=== PATIENT | male | born 1995 | race Caucasian/White ===

== ENCOUNTER 2023-03-10 21:37 | Inpatient (IN) ==
[2023-03-10 22:26] LABS: Basophils # (auto) 0.05 K/uL (0-0.2); Basophils % (auto) 0.4 %; Eosinophils # (auto) 0.09 K/uL (0-0.50); Eosinophils % (auto) 0.7 %; Hematocrit (blood only) 41.3 % (42.0-52.0); Hemoglobin 14.3 g/dl (14.0-18.0); Immature Granulocytes # (auto) 0.06 K/uL (0.01-0.20); Immature Granulocytes % (auto) 0.5 %; Lymphocytes # (auto) 1.43 K/uL (1.2-3.4); Lymphocytes % (auto) 10.8 %; Mean Corpuscular Hemoglobin 31.2 pg (25.0-34.0); Mean Corpuscular Hgb Conc 34.6 g/dL (32.0-36.0); Mean Corpuscular Volume 90.2 fL (80.0-100.0); Mean Platelet Volume 12.3 fL (9.4-12.4); Monocytes # (auto) 1.69 K/uL (0.11-0.59); Monocytes % (auto) 12.8 %; Neutrophils # (auto) 9.86 K/uL (1.40-6.50); Neutrophils % (auto) 74.8 %; Platelet Count 156 K/uL (130-400); RDW Coefficient of Variation 13.2 % (11.5-14.5); Red Blood Count 4.58 M/uL (4.70-6.10); White Blood Count 13.18 K/ul (4.8-10.8)
[2023-03-10 22:41] LABS: Albumin Globulin Ratio 1.4 (0.9-2); Albumin Level 4.4 gm/dl (3.4-5.0); BUN Creatinine Ratio 10.8 (10-20); Bilirubin,Total 0.9 mg/dl (0.2-1.0); Calcium 9.5 mg/dl (8.6-10.3); Creatinine Clr Calc Pharmacy 145.7 ml/min; Est GFR (African American) 115.4 ml/min; Est GFR (Non-African American) 99.6 ml/min; Globulin 3.2 gm/dl (2.5-4.0); Potassium 3.7 mmol/L (3.5-5.1); Total Protein 7.6 gm/dl (6.0-8.3)
[2023-03-10] MEDS ORDERED: MoRPHine SULFATE 4 MG/ML 1 ML CARP\\VIAL IV PRN (23:13)
[2023-03-10] MEDS ORDERED: ONDANSETRON INJ 2 MG/ML 2 ML VIAL IV PRN (23:13)
[2023-03-10] MEDS ORDERED: ACETAMINOPHEN 325 MG TAB PO PRN (23:13)
[2023-03-10] MEDS ORDERED: PIPERACILLIN/TAZOBACTAM 4.5 GM (over 30 mins) IV ONE (23:30)
[2023-03-10] MEDS ORDERED: PIPERACILLIN/TAZOBACTAM 4.5 GM/120 ML BAG IV STA (23:33)
[2023-03-10] MEDS: LACTATED RINGER'S 1,000 ML IV SCH (23:36)
[2023-03-11] MEDS: KETOROLAC TROMETHAMINE 15 MG/ML VIAL IV PRN ×3 (02:21→16:44)
[2023-03-11] MEDS: PIPERACILLIN/TAZOBACTAM 4.5 GM in DEXTROSE 5% 100 ML IV SCH ×3 (06:11→21:14)
--- NOTE | 2023-03-11 06:30 | Emergency Department Note ---
History of Present Illness General Chief complaint: Abnormal Labs/Diagnostic Testing Stated complaint: PERFORATED APPENDIX,ABNORMAL LAB Time Seen by Provider: 03/10/23 22:45 History of Present Illness Maximum Pain Intensity: 5 This is a 27-year-old male presenting to the emergency department for evaluation of appendicitis. Patient has had abdominal pain that is slowly escalating over the past week. He has been working in [facility], and ultimately went to their ER today due to the pain. He had blood work and CT scan that showed acute appendicitis with large phlegmon and possible small perforation without abdominal free air. The patient is in [place] this weekend, and patient does not have family support in [place]. He elected to leave that facility and travel to this facility for further evaluation. Patient has not had anything to eat since around 11 AM. No fevers or chills. No previous history of abdominal surgery. He is usually healthy and does not take medication on a regular basis. He did get Zosyn around 6 PM, just prior to leaving [facility]. He rates his discomfort a 5/10. Home Medications Medication Instructions Recorded Confirmed Type No Known Home Medications 03/10/23 03/10/23 History Allergies Allergy/AdvReac Type Severity Reaction Status Date / Time No Known Allergies Allergy Unverified 03/10/23 23:15 Past Med/Surg History Medical History Acute appendicitis Surgical History No significant past surgical history Social History Smoking Status: Never smoker Second Hand Exposure: No; Do You Dip or Chew Tobacco: No; Tobacco Cessation Education Requested by Patient: No Hx Alcohol Use: Yes Alcohol type: beer Hx Substance Use: No Preferred Language: Romansh Communication Ability: Effective Weight Yardage Checker Required: No Beliefs That Will Affect Care: None Current Living Situation: Spouse Other Information That Helps Us Care for You: No Feels Safe at Home: Yes Safety Concerns: Feels Safe At This Time Assistive Devices: None Review of Systems A total of 10 systems reviewed and were otherwise negative Physical Exam Vital Signs Vital Signs - 24 hr 03/10/23 21:41 03/10/23 22:00 03/10/23 22:21 Temperature 36.8 C Temperature Source Temporal Artery Scan Pulse Rate 110 H 93 H Pulse Rate [Apical] 97 H Pulse Rhythm [Apical] Regular Pulse Strength [Apical] Normal Respiratory Rate 18 22 Respiratory Effort / Characteristics Non-Labored Spontaneous Non-Labored Spontaneous Respiratory Depth Normal Normal Respiratory Pattern Regular Blood Pressure 132/74 Blood Pressure [Right Arm] 131/78 Blood Pressure Mean 93 Blood Pressure Mean [Right Arm] 95 Pulse Oximetry 97 96 Oxygen Delivery Method Room Air Room Air Sepsis Recent Fever Within 48 Hours Yes Sepsis New/Unexplained Change in Mental Status No Sepsis Action Taken by Nursing No Action Required VITALS: Vitals are noted on the nurse's note and reviewed by myself. Vital signs stable. GENERAL: Well-developed, well-nourished, white male, who is in no acute distress and resting comfortably. Patient is cooperative with the examination. HEAD: Normocephalic atraumatic. HEART: Regular rate and rhythm without murmurs gallops or rubs. LUNGS: Clear to auscultation bilaterally without wheezes, rales or rhonchi. No retractions or accessory muscle use. ABDOMEN: Positive normal bowel sounds x 4. Soft with reproducible tenderness in the right lower quadrant. No rebound or guarding. MUSCULOSKELETAL: No muscle atrophy, erythema, or edema noted. Full range of motion in all extremities. NEURO: Patient was alert and oriented to person place and time. CN II through XII grossly intact. Course Administered Medications Acetaminophen (Acetaminophen 325 Mg Tab) 650 mg PO Q4H PRN PRN Reason: pain/fever Stop: 04/09/23 23:12 Last Admin: 03/10/23 23:41 Dose: 650 mg Documented By: KAREN Lactated Ringer's (Lr) 1,000 mls @ 120 mls/hr IV .Q8H20M [facility] Stop: 04/09/23 23:14 Last Admin: 03/10/23 23:36 Dose: 120 mls/hr Documented By: KAREN Piperacillin Sod/Tazobactam (Sod 4.5 gm/ Dextrose) 120 mls @ 30 mls/hr IV Q8H [facility]; Protocol Stop: 03/21/23 05:59 Last Admin: 03/11/23 06:11 Dose: 30 mls/hr Documented By: ROMULO Ketorolac Tromethamine (Ketorolac Tromethamine 15 Mg/Ml Vial) 15 mg IV Q6H PRN PRN Reason: Pain & Pre PT Stop: 03/15/23 23:12 Last Admin: 03/11/23 02:21 Dose: 15 mg Documented By: [facility] Discontinued Medications Piperacillin Sod/Tazobactam Sod (Zosyn) 4.5 gm in 120 mls @ 240 mls/hr IV NOW STA; Protocol Stop: 03/11/23 00:02 Last Infusion: 03/11/23 00:15 Dose: 0 mls/hr Documented By: Admin: 03/10/23 23:36 Dose: 240 mls/hr Documented By: KAREN Medical Decision Making Differential Diagnosis Differential diagnosis: Etiologies such as biliary colic, cholecystitis, hepatitis, pancreatitis, cardiac disease, pancreatitis, gastritis, peptic ulcer disease, appendicitis, cystitis, diverticulitis, mesenteric ischemia, inflammatory bowel disease, ileus, bowel obstruction, testicular/adnexal torsion, aortic pathology, shingles, as well as others were considered Laboratory Data 03/10/23 21:55 03/10/23 21:55 Lab Results 03/10/23 03/10/23 Range/Units 21:55 21:55 WBC 13.18 H (4.8-10.8) K/ul RBC 4.58 L (4.70-6.10) M/uL Hgb 14.3 (14.0-18.0) g/dl Hct 41.3 L (42.0-52.0) % MCV 90.2 (80.0-100.0) fL MCH 31.2 (25.0-34.0) pg MCHC 34.6 (32.0-36.0) g/dL RDW Std Deviation 43.0 (36.4-46.3) fL RDW Coeff of Kaden 13.2 (11.5-14.5) % Plt Count 156 (130-400) K/uL MPV 12.3 (9.4-12.4) fL Immature Gran % (Auto) 0.5 % Neut % (Auto) 74.8 % Lymph % (Auto) 10.8 % Atlantic % (Auto) 12.8 % Eos % (Auto) 0.7 % Baso % (Auto) 0.4 % Neut # (Auto) 9.86 H (1.40-6.50) K/uL Lymph # (Auto) 1.43 (1.2-3.4) K/uL Atlantic # (Auto) 1.69 H (0.11-0.59) K/uL Eos # (Auto) 0.09 (0-0.50) K/uL Baso # (Auto) 0.05 (0-0.2) K/uL Immature Gran # (Auto) 0.06 (0.01-0.20) K/uL Sodium 136 (136-145) mmol/L Potassium 3.7 (3.5-5.1) mmol/L Chloride 103 (98-107) mmol/L Carbon Dioxide 24 (21-32) mmol/L Anion Gap 9 (3-11) BUN 11 (6-23) mg/dl Creatinine 1.02 (0.6-1.4) mg/dl Est Cr Clr Drug Dosing 145.7 ml/min Est GFR ( Amer) 115.4 ml/min Est GFR (Non-Af Amer) 99.6 ml/min BUN/Creatinine Ratio 10.8 (10-20) Glucose 108 H (70-99(Fasting)) mg/dl Calcium 9.5 (8.6-10.3) mg/dl Total Bilirubin 0.9 (0.2-1.0) mg/dl AST 22 (13-39) U/L ALT 26 (7-52) U/L Alkaline Phosphatase 59 (34-104) U/L Total Protein 7.6 (6.0-8.3) gm/dl Albumin 4.4 (3.4-5.0) gm/dl Globulin 3.2 (2.5-4.0) gm/dl Albumin/Globulin Ratio 1.4 (0.9-2) MDM Narrative Physical exam and history were performed. Nursing notes, EMR, and Medication List were personally reviewed. No social concerns were identified as barriers to patients care. Patient appears to have acute appendicitis on imaging at another facility. Patient lives in the [place] area and family is out of state currently. On presentation to this department the patient appears well and nontoxic. He is afebrile. He does have some reproducible tenderness in the right lower quadrant. I did review his studies from [place], as he did bring imaging and results with him. He did recently receive antibiotics and CT scan does show acute appendicitis with a large phlegmon with possible small perforation. He does not have any free air in the abdomen however, which is reassuring. IV access was established and labs were obtained here. Basic blood work was obtained. The patient does have an elevated white count of 13,000 here in the ER. Remaining labs are fairly nondiagnostic. Case was discussed with the on-call surgeon, Dr. Salguero, who will evaluate the patient for ongoing care and evaluation. Please see Dr. Salguero's dictation for further patient course, plan, and disposition. The chart was completed utilizing [employer] Speech Voice Recognition Software. Grammatical errors, random word insertions, pronoun errors, and incomplete sentences are an occasional consequence of this system due to software limitations, ambient noise, and hardware issues. Any formal questions or concerns about the content, text, or information contained within the body of this dictation should be directly addressed to the provider for clarification. . Impression & Plan Acute appendicitis Discharge Plan Visit Data Chief Complaint: Abnormal Labs/Diagnostic Testing Stated Complaint: PERFORATED APPENDIX,ABNORMAL LAB ED Provider: Leonel Gamboa ED Midlevel Provider: Hi Lacey Discharge Problem: Acute appendicitis Patient Disposition: Admitted As Inpatient Discharge Instructions Interventions: ED Discharge Assessment Last Done: 03/11/23 01:58
[2023-03-11] MEDS: LACTATED RINGER'S 1,000 ML IV SCH ×2 (07:41→15:58)
[2023-03-11 07:49] LABS: Basophils # (auto) 0.07 K/uL (0-0.2); Basophils % (auto) 0.6 %; Eosinophils # (auto) 0.18 K/uL (0-0.50); Eosinophils % (auto) 1.5 %; Hematocrit (blood only) 39.4 % (42.0-52.0); Hemoglobin 13.5 g/dl (14.0-18.0); Immature Granulocytes # (auto) 0.06 K/uL (0.01-0.20); Immature Granulocytes % (auto) 0.5 %; Lymphocytes # (auto) 1.11 K/uL (1.2-3.4); Lymphocytes % (auto) 9.5 %; Mean Corpuscular Hemoglobin 31.6 pg (25.0-34.0); Mean Corpuscular Hgb Conc 34.3 g/dL (32.0-36.0); Mean Corpuscular Volume 92.3 fL (80.0-100.0); Mean Platelet Volume 12.3 fL (9.4-12.4); Monocytes # (auto) 1.55 K/uL (0.11-0.59); Monocytes % (auto) 13.2 %; Neutrophils # (auto) 8.73 K/uL (1.40-6.50); Neutrophils % (auto) 74.7 %; Platelet Count 145 K/uL (130-400); RDW Coefficient of Variation 13.1 % (11.5-14.5); RDW Standard Deviation 44.5 fL (36.4-46.3); Red Blood Count 4.27 M/uL (4.70-6.10)
--- NOTE | 2023-03-11 08:03 | History & Physical Report ---
Date of Service March 11, 2023 Assessment & Plan (1) Acute phlegmonous appendicitis: Plan: complicated appendicitis with 6 days of pain feels better this AM on IV zosyn NPO conservative treatment plan appendectomy could be morbid procedure with possible open or partial colon resection pain minimal responds to toradol Present on Admission?: Yes Admission and Anticipated Discharge Date Admission Date: March 10, 2023 History of Present Illness Primary Care Provider: NO PCP This is a 27-year-old male with acute complicated appendicitis. The patient has had right sided abdominal pain for the last 6 days. He was seen at the [place] ED where a CT scan showed acute appendicitis with large phlegmon and possible small perforation without abdominal free air. He travelled to [facility] for further evaluation. He has no fevers or chills. No previous history of abdominal surgery. He began zosyn yesterday and feels better this AM. Allergies Allergy/AdvReac Type Severity Reaction Status Date / Time No Known Allergies Allergy Unverified 03/10/23 23:15 Home Medications Medication Instructions Recorded Confirmed Type No Known Home Medications 03/10/23 03/10/23 History Past Med/Surg History Medical History Acute appendicitis Surgical History No significant past surgical history Social History Smoking Status: Never smoker Second Hand Exposure: No; Do You Dip or Chew Tobacco: No; Tobacco Cessation Education Requested by Patient: No Hx Alcohol Use: Yes Alcohol type: beer Hx Substance Use: No Preferred Language: Mexican Communication Ability: Effective Director Peoplesoft Required: No Beliefs That Will Affect Care: None Current Living Situation: Spouse Other Information That Helps Us Care for You: No Feels Safe at Home: Yes Safety Concerns: Feels Safe At This Time Assistive Devices: None Review of Systems Constitutional: no fever, no chills and no anorexia Eyes: no problem reported Ear, Nose, Mouth, Throat: no problem reported Respiratory: no cough and no dyspnea Cardiovascular: no chest pain Gastrointestinal: + abdominal pain; no nausea, no vomiting and no change in bowel habits Genitourinary: no dysuria Musculoskeletal: no back pain and no joint pain Integumentary: no problem reported Neurologic: no problem reported Psychiatric: no behavioral changes Endocrine: no fatigue Hematologic / Lymphatic: no easy bleeding and no easy bruising Physical Exam Constitutional: WD/WN, vitals as above Eyes: PERRL, conjunctivae normal, anicteric sclerae ENMT: external ear and nose normal, oropharynx normal Neck: trachea midline Respiratory: normal respiratory effort, lungs clear to auscultation Cardiovascular: RRR, no murmur, no edema Gastrointestinal (Abdomen): Inspection/Auscultation: abdomen normal to inspection and normal bowel sounds; abdomen not distended and no abdominal surgical incision Percussion/Palpation: + abdomen tender and abdomen soft; no guarding and abdomen not rigid Musculoskeletal: Head/Neck/Chest: normocephalic and head atraumatic Skin: no rashes, warm and dry Psychiatric: A+Ox3, euthymic affect Results & Data Results & Data Vital Signs (Past 12 Hours) Vital Signs Temp Pulse Pulse Resp BP BP Pulse Ox 03/11/23 07:11 36.8 C 86 15 125/75 98 03/11/23 02:36 03/11/23 02:25 36.5 C 76 16 106/66 97 03/11/23 02:00 81 03/11/23 00:00 87 18 118/70 97 03/10/23 22:21 93 H 03/10/23 22:00 97 H 22 131/78 96 03/10/23 21:41 36.8 C 110 H 18 132/74 97 O2 Del Method 03/11/23 07:11 Room Air 03/11/23 02:36 Room Air 03/11/23 02:25 Room Air 03/11/23 02:00 03/11/23 00:00 Room Air 03/10/23 22:21 03/10/23 22:00 Room Air 03/10/23 21:41 Room Air Code Status & VTE Plan VTE Prophylaxis Plan VTE Prophylaxis will be ordered: Yes
[2023-03-11] MEDS: MoRPHine SULFATE 2 MG/ML CARP IV PRN ×3 (14:16→21:13)
[2023-03-12] MEDS: LACTATED RINGER'S 1,000 ML IV SCH ×4 (00:01→23:37)
[2023-03-12] MEDS: KETOROLAC TROMETHAMINE 15 MG/ML VIAL IV PRN ×3 (00:01→14:44)
[2023-03-12] MEDS: MoRPHine SULFATE 2 MG/ML CARP IV PRN ×3 (06:00→21:31)
[2023-03-12] MEDS: PIPERACILLIN/TAZOBACTAM 4.5 GM in DEXTROSE 5% 100 ML IV SCH ×3 (06:01→21:31)
[2023-03-12 07:24] LABS: Basophils # (auto) 0.06 K/uL (0-0.2); Basophils % (auto) 0.7 %; Eosinophils % (auto) 3.4 %; Hemoglobin 12.6 g/dl (14.0-18.0); Immature Granulocytes # (auto) 0.04 K/uL (0.01-0.20); Immature Granulocytes % (auto) 0.5 %; Lymphocytes # (auto) 1.21 K/uL (1.2-3.4); Lymphocytes % (auto) 13.7 %; Mean Corpuscular Hgb Conc 34.1 g/dL (32.0-36.0); Mean Corpuscular Volume 91.1 fL (80.0-100.0); Mean Platelet Volume 12.2 fL (9.4-12.4); Monocytes % (auto) 12.5 %; Neutrophils # (auto) 6.11 K/uL (1.40-6.50); Neutrophils % (auto) 69.2 %; Platelet Count 148 K/uL (130-400); RDW Coefficient of Variation 12.9 % (11.5-14.5); RDW Standard Deviation 42.8 fL (36.4-46.3); Red Blood Count 4.06 M/uL (4.70-6.10); White Blood Count 8.82 K/ul (4.8-10.8)
--- NOTE | 2023-03-12 12:30 | Surgery Progress Note ---
Date of Service March 12, 2023 Assessment & Plan (1) Acute phlegmonous appendicitis: Plan: Outpatient CT scan showing dilated appendix at 3.3 cm with signficant phlegmonous changes avss leukocytosis resolved pain controlled, improving no flatus yet abdomen soft, tender in RLQ without rigidity, guarding or peritonitis Plan: Continue IV abx for another 1-2 days given extensive phlegmonous changes Clear liquids PO pain management as needed Encouraged to ambulate Discussed interval appendectomy in 6-8 weeks since clinically improving Dr. Arrieta has seen and examined pt, agrees with above. Admission and Anticipated Discharge Date Admission Date: March 10, 2023 Subjective feeling better pain controlled no n,v no flatus urinating without difficulty no fevers or chills has not been ambulating Physical Exam Constitutional: WD/WN, vitals as above cooperative and comfortable; no acute distress and not ill appearing Respiratory: normal respiratory effort; no respiratory distress Gastrointestinal (Abdomen): Inspection/Auscultation: abdomen normal to inspection and normal bowel sounds; abdomen not distended and no abdominal surgical scar Percussion/Palpation: + abdomen tender (RLQ on deep palpation) and abdomen soft; no guarding, abdomen not rigid and abdomen not firm Skin: no rashes, warm and dry Psychiatric: A+Ox3, euthymic affect Results & Data Vital Signs (Past 12 Hours) Vital Signs Temp Pulse Resp BP Pulse Ox O2 Del Method 03/12/23 07:49 36.6 C 75 16 138/77 94 Room Air Laboratory Results 03/12/23 Range/Units 07:00 WBC 8.82 (4.8-10.8) K/ul RBC 4.06 L (4.70-6.10) M/uL Hgb 12.6 L (14.0-18.0) g/dl Hct 37.0 L (42.0-52.0) % MCV 91.1 (80.0-100.0) fL MCH 31.0 (25.0-34.0) pg MCHC 34.1 (32.0-36.0) g/dL RDW Std Deviation 42.8 (36.4-46.3) fL RDW Coeff of Kaden 12.9 (11.5-14.5) % Plt Count 148 (130-400) K/uL MPV 12.2 (9.4-12.4) fL Immature Gran % (Auto) 0.5 % Neut % (Auto) 69.2 % Lymph % (Auto) 13.7 % Orange % (Auto) 12.5 % Eos % (Auto) 3.4 % Baso % (Auto) 0.7 % Neut # (Auto) 6.11 (1.40-6.50) K/uL Lymph # (Auto) 1.21 (1.2-3.4) K/uL Orange # (Auto) 1.10 H (0.11-0.59) K/uL Eos # (Auto) 0.30 (0-0.50) K/uL Baso # (Auto) 0.06 (0-0.2) K/uL Immature Gran # (Auto) 0.04 (0.01-0.20) K/uL
[2023-03-13] MEDS: PIPERACILLIN/TAZOBACTAM 4.5 GM in DEXTROSE 5% 100 ML IV SCH ×3 (05:40→21:25)
[2023-03-13] MEDS: KETOROLAC TROMETHAMINE 15 MG/ML VIAL IV PRN (07:38)
[2023-03-13] MEDS: LACTATED RINGER'S 1,000 ML IV SCH ×2 (07:38→19:39)
[2023-03-13] MEDS ORDERED: oxyCODONE/ACETAMINOPHEN 5mg/325mg TAB PO PRN (08:04)
[2023-03-13] MEDS ORDERED: ACETAMINOPHEN 325 MG TAB PO PRN (08:27)
--- NOTE | 2023-03-13 12:23 | Surgery Progress Note ---
Date of Service March 13, 2023 Assessment & Plan (1) Acute phlegmonous appendicitis: Plan: Outpatient CT scan showing dilated appendix at 3.3 cm with signficant phlegmonous changes avss leukocytosis resolved pain controlled, improving + flatus abdomen soft, tender in RLQ without rigidity, guarding or peritonitis Plan: Continue IV abx given extensive phlegmonous change, likely 1 more day and discharge on oral abx full liquids PO pain management as needed Encouraged to ambulate Discussed interval appendectomy in 6-8 weeks since clinically improving Dr. Arrieta has seen and examined patient, agrees with above. Admission and Anticipated Discharge Date Admission Date: March 10, 2023 Subjective feeling a little better pain is slightly better, still took Morphine to help sleep last night no n,v tolerated clear liquids passing gas, no bowel movement yet no fevers or chills Physical Exam Constitutional: WD/WN, vitals as above cooperative and comfortable; no acute distress and not ill appearing Gastrointestinal (Abdomen): Inspection/Auscultation: abdomen normal to inspection; abdomen not distended Percussion/Palpation: + abdomen tender (RLQ on deep palpation, improving) and abdomen soft; no guarding, abdomen not rigid and abdomen not firm Skin: no rashes, warm and dry Psychiatric: A+Ox3, euthymic affect Results & Data Vital Signs (Past 12 Hours) Vital Signs Pulse BP Pulse Ox O2 Del Method 03/13/23 08:32 77 123/68 97 Room Air
[2023-03-13] MEDS: oxyCODONE/ACETAMINOPHEN 5mg/325mg TAB PO PRN ×2 (13:55→19:39)
[2023-03-14] MEDS: oxyCODONE/ACETAMINOPHEN 5mg/325mg TAB PO PRN (02:12)
[2023-03-14] MEDS: PIPERACILLIN/TAZOBACTAM 4.5 GM in DEXTROSE 5% 100 ML IV SCH (05:21)
[2023-03-14] MEDS: LACTATED RINGER'S 1,000 ML IV SCH (08:11)
[2023-03-14] MEDS: KETOROLAC TROMETHAMINE 15 MG/ML VIAL IV PRN (08:13)
--- NOTE | 2023-03-14 10:50 | Discharge Summary ---
Date of Service March 14, 2023 Admission HPI Per Admitting Provider This is a 27-year-old male with acute complicated appendicitis. The patient has had right sided abdominal pain for the last 6 days. He was seen at the [place] ED where a CT scan showed acute appendicitis with large phlegmon and possible small perforation without abdominal free air. He travelled to [facility] for further evaluation. He has no fevers or chills. No previous history of abdominal surgery. He began zosyn yesterday and feels better this AM. Principal Diagnosis Acute phlegmonous appendicitis Discharge Exam Constitutional WD/WN, vitals as above healthy appearing, cooperative and comfortable; no acute distress and not ill appearing Respiratory normal respiratory effort; no respiratory distress Gastrointestinal (Abdomen) Inspection/Auscultation: abdomen normal to inspection and normal bowel sounds; abdomen not distended Percussion/Palpation: + abdomen tender (mild on deep palpation of the RLQ) and abdomen soft; no guarding, abdomen not rigid and abdomen not firm Skin no rashes, warm and dry Psychiatric A+Ox3, euthymic affect Discharge Data Allergies Allergy/AdvReac Type Severity Reaction Status Date / Time No Known Allergies Allergy Unverified 03/10/23 23:15 Consultations 03/10/23 23:10 Consult General Surgery Stat Hospital Course (1) Acute phlegmonous appendicitis: Patient was admitted to hospital for conservative management from emergency room for acute phlegmonous appendicitis given extensive findings on CT scan. He was started on IV Zosyn, NPO for bowel rest, IV pain management and antiemetics as needed, activity as tolerated, and SCDs for DVT prophylaxis. labs were monitored and wbc decreased down to normal on 03/12/23. Diet was slowly advanced to clears, then fulls and low fiber diet prior to discharge. Pain was controlled with IV and then oral pain medication. He had return of bowel function on HD # 3. Overall hospital course was uneventful. He was discharged home with 10 days of oral Augmentin and 2 week follow-up in surgical office. He will need interval appendectomy in 6-8 weeks. Total Time Total Time Spent Total Time Spent (In Minutes): 30 Total Time Includes: Examination of the Patient, Discharge Planning, Medication Reconciliation and Communication With Other Providers Discharge Plan Discharge Items Patient Disposition: Home - Self-Care Reason For Visit: APPENDICITIS Discharge Diagnosis: perforated appendicitis Activity: Per Instructions section Non-emergency contact: Primary Care Provider and Surgeon Call non-emergency contact if: you have any medication questions, your pain is not controlled, your pain is worsening, your pain is concerning for you, you have a fever and your temperature is above 101 Follow-up/Referrals: Kyle Arrieta MD [Physician] - (2 weeks) PCPJEROD [Primary Care Provider] - Diet: Regular Addtl Attending Provider Instructions: Diet: - Low fiber diet recommended for 1 week then return to regular diet - smaller more frequent meals advised, appetite may be low for a few days to a we SPECIAL CARE INSTRUCTIONS: - Call the surgeon's office with any questions or concerns - - (ex. temperature higher than 101 degrees F, excessive bleeding or pain). MEDICATIONS: - Resume previous medications unless instructed otherwise by your surgeon. - May alternate extra strength Tylenol and Ibuprofen as needed for mild to moderate pain -650 mg Tylenol every 6 hours as needed - Ibuprofen 600 mg every 6 hours as needed (take with food) - Percocet 1 every 6 hours, as needed for moderate to severe pain - take antibiotic as prescribed (twice a day) for entire course as prescribed (10 days) FOLLOW UP VISIT: - If not already scheduled, please call the office to schedule a two week follow-up appointment. Office number Pending Studies at Discharge: No Stand-Alone Forms: My [facility], Work/School Release, Smoking Cessation Medications and DC Order Prescriptions: New oxycodone-acetaminophen 5-325 mg tablet 1 tab PO Q6H PRN (Reason: pain) Qty: 10 0RF amoxicillin-pot clavulanate 875-125 mg tablet 1 tab PO BID Qty: 20 0RF Discharge Orders: Discharge Order (Routine); Ordered 03/14/23 Ordered By: Shaneka Cobos/Other Patient Handouts: Low-Fiber Diet, What Is Appendicitis? Admission Data Admit Date/Time: 03/10/23 23:13 Attending Provider: Scott Salguero Admit Provider: Scott Salguero Primary Care Provider: PCP,NO Other Providers: Scott Salguero Other Interventions: Discharge Summary Assessment (RN) Last Done: 03/14/23 10:49
== END 2023-03-14 13:06 | disposition home or self-care (01) | DRG 373 ==
LOC: ED 21:37 → 3N 23:13
DX: K35.32 Acute appendicitis with perforation, localized peritonitis, and gangrene, without abscess